=== PATIENT | male | born 1950 | race Caucasian/White ===

== ENCOUNTER 2016-08-31 10:16 | Emergency (ER) | payer SELFPAY ==
[~2016-08-31] VITALS: Ht 177.8 cm; Wt 94.5 kg
[2016-08-31 10:28] VITALS: Ht 177.8 cm; Wt 94.5 kg
[2016-08-31] MEDS ORDERED: KETOROLAC 60 MG INJ IM STA (12:26)
[2016-08-31] MEDS ORDERED: ONDANSETRON (ODT) 4 MG TAB ODT STA (12:26)
[2016-08-31] MEDS ORDERED: HYDROCODONE/APAP (10/325) TAB PO ONE (12:30)
[2016-08-31] MEDS ORDERED: IBUP-1542 PO (13:32)
[2016-08-31] MEDS ORDERED: HYDR-906 PO (13:32)
--- NOTE | 2016-08-31 13:37 | ERD ---
ER Documentation Chief Complaint Date/Time DATE: 08/31/16 TIME: 13:36 Chief Complaint LEFT HIP PAIN,RADIATES TO LOWER LEG HPI This 66-year-old male complains of a 2 day history of pain in the low back radiating to the left lower extremity. He has a history of sciatica and it feels the same. He denies any new injury, fall, or inciting events. He denies any urinary complaints, bowel or bladder incontinence, weakness. ROS All systems reviewed and are negative except as per history of present illness. Medications Home Meds Active Scripts Hydrocodone/Acetaminophen (Elwood 5-325 Tablet) 1 Each Tablet, 1 EACH PO QID, # 16 TAB Prov:KLARISSA PERRY MD 08/31/16 Ibuprofen* (Motrin*) 600 Mg Tab, 600 MG PO Q6, #15 TAB Prov:KLARISSA PERRY MD 08/31/16 Allergies Allergies: Coded Allergies: No Known Allergy (Unverified , 08/31/16) PMhx/Soc History of Surgery: No Anesthesia Reaction: No Hx Neurological Disorder: No Hx Respiratory Disorders: No Hx Cardiac Disorders: No Hx Psychiatric Problems: No Hx Miscellaneous Medical Probl: Yes (SCIATICA) Hx Alcohol Use: Yes Hx Substance Use: Yes (MJ) Hx Tobacco Use: Yes Smoking Status: Current some day smoker Physical Exam Vitals Vital Signs Date Time Temp Pulse Resp B/P Pulse Ox O2 Delivery O2 Flow Rate FiO2 08/31/16 10:28 98.9 79 18 134/72 98 Physical Exam Const: [] Alert, [id number]. Head: Atraumatic Eyes: Normal Conjunctiva ENT: Normal External Ears, Nose and Mouth. Neck: Full range of motion..~ No meningismus. Resp: Clear to auscultation bilaterally Cardio: Regular rate and rhythm, no murmurs Abd: Soft, non tender, non distended. Normal bowel sounds Skin: No petechiae or rashes Back: No midline or flank tenderness. Tenderness in L4-5 paraspinous muscles and positive straight leg raise in the left. Ext: No cyanosis, or edema Neur: Awake and alert Psych: Normal Mood and Affect Results 24 hrs Current Medications Medications (Trade) Dose Ordered Sig/Frank Route PRN Reason Start Time Stop Time Status Last Admin Dose Admin Acetaminophen/ Hydrocodone Bitart (Elwood (10/325)) 1 tab ONCE ONCE PO 08/31/16 12:30 08/31/16 12:31 DC 08/31/16 12:38 Ondansetron HCl (Zofran Odt) 8 mg ONCE STAT ODT 08/31/16 12:26 08/31/16 12:28 DC 08/31/16 12:37 Ketorolac Tromethamine (Toradol) 60 mg ONCE STAT IM 08/31/16 12:26 08/31/16 12:28 DC 08/31/16 12:38 Procedures/MDM Patient was given Toradol 60 mg IM and Elwood 10 mg by mouth. Patient presents with signs and symptoms of likely sciatica without signs or symptoms to suggest epidural abscess, cauda equina syndrome, neurologic deficit. He will be treated with a short course of Elwood and ibuprofen and instructions to continue Flexeril which she has at home. Given instructions on back exercises as well as advised to follow-up with his primary doctor this week or return for fevers, blood, weakness, new or worsening symptoms. The patient was stable with no new complaints during the ER course. Clinically, there is no current evidence to suggest meningitis, sepsis, acute abdomen, pneumonia, acute coronary syndrome, pulmonary embolism, or any other emergent condition appearing to require further evaluation or hospitalization. The patient should certainly return for any new or worsening symptoms per the aftercare instructions. They should otherwise follow-up with her primary care doctor for reevaluation this week. Departure Diagnosis: Primary Impression: Sciatica Laterality: left Qualified Code: M54.32 - Sciatica of left side Condition: Stable Patient Instructions: Back Exercises, Lumbar Additional Instructions: Likely sciatica. Recheck for fevers, vomiting, new or worsening symptoms with primary care doctor. KLARISSA PERRY MD Aug 31, 2016 13:37
== END 2016-08-31 13:47 | disposition home or self-care (01) ==
LOC: FTE 10:16
DX: M54.32 Sciatica, left side (principal); F17.210 Nicotine dependence, cigarettes, uncomplicated
CPT/HCPCS: 96372; J1885

== ENCOUNTER 2018-05-06 20:58 | Emergency (ER) | END 2018-05-06 23:25 | disposition home or self-care (01) ==